=== PATIENT | female | born 1960 ===

== ENCOUNTER 2018-07-31 15:43 | Emergency (ER) | payer OTHER ==
[2018-07-31 15:47] VITALS: BMI 26.1
[2018-07-31 16:28] VITALS: BP 154/83; PULSE 98; RESP 18; TEMP 97.6; O2SAT 99
--- NOTE | 2018-07-31 16:35 | C.PDOC ---
History Of Present Illness 58 y/o female presents to ED for nasal congestion and right-sided headache behind her eye, positionally changes. Denies dizziness, fever, chills, nausea, or vomiting. Patient has history of anxiety and intentional benzyl overdose. Time Seen by Provider: 07/31/18 16:24 Chief Complaint (Nursing): High Blood Pressure History Per: Patient History/Exam Limitations: None Onset/Duration Of Symptoms: Days Current Symptoms Are (Timing): Still Present Past Medical History Reviewed: Historical Data, Nursing Documentation, Vital Signs Vital Signs: Last Vital Signs Temp 97.6 F 07/31/18 15:48 Pulse 98 H 07/31/18 15:48 Resp 18 07/31/18 15:48 BP 154/83 H 07/31/18 15:48 Pulse Ox 99 07/31/18 15:48 Primary Care Provider: Non [facility] Provider, - Medical History PMH: Depression, Hypothyroidism (pt takes synthroid), Malignancy (breast cancer) Denies: HIV, Chronic Kidney Disease - [facility] Procedures GROUP PSYCHOTHERAPY (04/11/17) INDIVIDUAL PSYCHOTHERAPY, COGNITIVE-BEHAVIORAL (04/11/17) Family History: States: No Known Family Hx - Social History Hx Alcohol Use: No Hx Substance Use: No - Immunization History Hx Tetanus Toxoid Vaccination: No Hx Influenza Vaccination: No Hx Pneumococcal Vaccination: No Review Of Systems Except As Marked, All Systems Reviewed And Found Negative. Constitutional: Negative for: Fever, Chills ENT: Positive for: Nose Congestion Gastrointestinal: Negative for: Nausea, Vomiting Neurological: Positive for: Headache. Negative for: Dizziness Physical Exam - Physical Exam Appears: Non-toxic, No Acute Distress, Other ( female, bizarre affect) Skin: Warm, Dry Head: Normacephalic Eye(s): bilateral: Normal Inspection Ear(s): Bilateral: Normal Nose: Other (nasal congestion, right greater than left) Oral Mucosa: Moist Neck: Supple Cardiovascular: Rhythm Regular, No Murmur Respiratory: Normal Breath Sounds, No Rales, No Rhonchi, No Wheezing Extremity: Bilateral: Atraumatic, Normal ROM Neurological/Psych: Oriented x3, Normal Speech ED Course And Treatment O2 Sat by Pulse Oximetry: 99 (RA) Pulse Ox Interpretation: Normal Medical Decision Making Medical Decision Making: Plan: --Benadryl PO --Motrin PO nasal congestion seasonal allergies ? sinus headaches R>L mild elev bp will resolve with pain/anxiety control no w/u indicated Disposition Doctor Will See Patient In The: Office Counseled Patient/Family Regarding: Studies Performed, Diagnosis - Disposition Referrals: [facility] [Outside] [email or web address] [place] [Outside] [facility] [Outside] [facility] [Outside] Disposition: HOME/ ROUTINE Disposition Time: 16:35 Condition: GOOD Additional Instructions: Claritin 10 mg en la manana Flonase Espray 1 espray cada lado del nariz cada 12 horas Pseudafed 30 mg cada 6 horas trinh necessario- se descongetiona las pasages nasa les Instructions: Sinus Headache (DC) Forms: [employer] (Slovak) Print Language: CHINESE - Clinical Impression Clinical Impression: Headache, Nasal sinus congestion - Scribe Statement The provider has reviewed the documentation as recorded by the Scribe Carolann Michelle Provider Attestation: All medical record entries made by the Scribe were at my direction and personally dictated by me. I have reviewed the chart and agree that the record accurately reflects my personal performance of the history, physical exam, medical decision making, and the department course for this patient. I have also personally directed, reviewed, and agree with the discharge instructions and disposition.
--- NOTE | 2018-08-03 16:15 | CARD ---
APPROVED REPORT Date of service: 07/31/2018 EKG Measurement Heart [id number] <Conclusion> Normal sinus rhythm Possible Left atrial enlargement Borderline ECG
== END 2018-07-31 17:14 | disposition home or self-care (01) ==
LOC: C.ER 15:43
DX: R51 Headache (principal); R09.81 Nasal congestion